=== PATIENT | female | born 1985 | race Caucasian/White ===

== ENCOUNTER 2016-10-29 10:27 | Emergency (ER) | payer MEDICAID ==
[~2016-10-29] VITALS: Ht 152.4 cm; Wt 42.7 kg
[~2016-10-29 10:27] MED LIST: 00186-0372-20 IH; ABILIFY5 MG PO; AMBIEN 10MG10 MG PO; BACTROBAN 22GM22 GM; CYMBALTA 20MG20 MG PO; DESYREL 50MG50 MG PO; FOLIC ACID 11 MG/TA1 PO; KLONOPIN 1MG1 MG PO; LAMICTAL 100MG100 MG PO; LEVAQUIN 5500 MG/TA1 PO; MACROBID 1100 MG/CAP PO; MORPHINE 1515 MG/TAB PO; MOTRIN 800800 MG/TAB PO; MS CONTIN 115 MG/TAB PO; NAPROSYN 2250 MG/TAB PO; NEURONTIN100 MG/CAP; NEURONTIN100 MG/CAP PO; NORCO 325 MG-101 TAB PO; NORCO 325 MG-51 TAB PO; OXY IR5 MG PO; OXYCONTIN 10MG10 MG PO; PROAIR HFA0.09 MG/AC IH; PROVIGIL 100MG100 MG PO; PROVIGIL200 MG PO; RECLIPSEN 0.151 TAB PO; REMERON 15M15 MG/TA1 PO; REQUIP 1MG T1 MG/TAB PO; RESTORIL30 MG PO; ROBAXIN 50500 MG/TAB PO; RT ADVAIR 528 DISKUS IH; SEROQUEL 2525 MG/TAB PO; SEROQUEL50 MG PO; SOMA 350MG350 MG/TAB PO; SONATA5 MG PO; STRATTERA80 MG PO; TOPROL XL 25MG25 MG PO; ULTRAM 50MG TAB50 MG PO; VENTOLIN0.09 MG IH; XANAX 0.5MG0.5 MG PO; ZOFRAN 4MG T4 MG/TAB PO; ZOFRAN8 MG PO
[2016-10-29 10:30] VITALS: TEMP 98.6
[2016-10-29 11:32] LABS: BASO # 0.1 (0.0-0.2); BASO % 0.4 % (0.0-2.0); EOS # 0.2 (0.0-0.7); EOS % 1.3 % (0-4.0); GRAN # 10.2 (1.4-6.5); GRAN % 78.9 % (42.2-75.2); HEMATOCRIT 37.6 % (37.0-47.0); HEMOGLOBIN 13.1 g/dl (12.5-16.0); LYMPH # 1.8 (1.2-3.4); LYMPH % 13.7 % (20.0-51.0); MEAN CELL VOLUME 87 fl (80.0-100.0); MEAN CORPUSCULAR HEMOGLOBIN 30 pg (27.0-31.0); MEAN CORPUSCULAR HGB CONC 35 g/dl (33.0-37.0); MEAN PLATELET VOLUME 9.6 fl (7.4-10.4); MONO # 0.7 (0.1-0.6); MONO % 5.3 % (1.7-9.3); PLATELET COUNT 251 K/mm3 (130-400); RED BLOOD COUNT 4.32 M/mm3 (4.10-5.30); REDCELL DISTRIBUTION WIDTH-CV 12.6 % (11.5-14.5); WHITE BLOOD COUNT 12.9 K/mm3 (4.8-10.8)
[2016-10-29] MEDS ORDERED: REQUIP 0.5MG0.5 MG PO (11:33)
[2016-10-29 11:38] LABS: PH 5 (5-8); URINE APPEARANCE Hazy; URINE BACTERIA None Seen /hpf; URINE BILIRUBIN Negative (NEGATIVE); URINE BLOOD 3+ (NEGATIVE); URINE COLOR Amber; URINE GLUCOSE Negative (NEGATIVE); URINE KETONE Negative (NEGATIVE); URINE RBC >50 /hpf; URINE UROBILINOGEN >=4.0 mg/dL (NEGATIVE); URINE WBC >50 /hpf
[2016-10-29 11:51] LABS: ADJUSTED CALCIUM 9.4 mg/dL (8.4-10.2); ALANINE AMINOTRANSFERASE 22 U/L (9-52); ALBUMIN 4.7 gm/dL (3.5-5.0); ALKALINE PHOSPHATASE 67 U/L (50-136); ANION GAP 11 mmol/L (7-16); BILIRUBIN,TOTAL 0.6 mg/dL (0.0-1.0); BLOOD UREA NITROGEN 7 mg/dL (7-17); CARBON DIOXIDE 24 mmol/L (22-30); CHLORIDE 103 mmol/L (98-107); CREATININE, serum 0.87 mg/dL (0.52-1.25); GLUCOSE 89 mg/dL (74-106); SODIUM 138 mmol/L (137-145); TOTAL PROTEIN 7.9 gm/dL (6.4-8.2)
[2016-10-29 11:52] LABS: C-REACTIVE PROTEIN < 0.5 mg/dL (0.0-0.9)
[2016-10-29] MEDS ORDERED: ZOFRAN 4MG T4 MG/TAB PO (12:53)
[2016-10-29] MEDS ORDERED: NORCO 325 MG-51 TAB PO (12:53)
[2016-10-29] MEDS ORDERED: OMNICEF 300MG300 MG PO (12:53)
[2016-10-29 14:05] VITALS: BP 91/70; PULSE 58
== END 2016-10-29 14:08 | disposition home or self-care (01) ==
LOC: COL.ER 10:27
PROVIDERS: Emergency Medicine
DX: N12 Tubulo-interstitial nephritis, not specified as acute or chronic (principal); F90.9 Attention-deficit hyperactivity disorder, unspecified type; F41.9 Anxiety disorder, unspecified; J45.909 Unspecified asthma, uncomplicated; Z87.442 Personal history of urinary calculi; Z98.51 Tubal ligation status
CPT/HCPCS: J0696; J1170; J2550; J7030

== ENCOUNTER 2016-11-16 21:48 | Emergency (ER) | payer MEDICAID ==
[~2016-11-16] VITALS: Ht 152.4 cm; Wt 43.6 kg
[~2016-11-16 21:48] MED LIST changes: +OMNICEF 300MG300 MG PO; +REQUIP 0.5MG0.5 MG PO
[2016-11-16 21:52] VITALS: BP 107/58; TEMP 98.1
[2016-11-17] MEDS ORDERED: BACTRIM DS 8001 TAB PO (00:32)
[2016-11-17] MEDS ORDERED: NORCO 325 MG-51 TAB PO (00:32)
[2016-11-17 00:46] VITALS: PULSE 92
== END 2016-11-17 00:47 | disposition home or self-care (01) ==
LOC: COL.ER 21:48
DX: N61.1 Abscess of the breast and nipple (principal); J45.909 Unspecified asthma, uncomplicated; F17.210 Nicotine dependence, cigarettes, uncomplicated
CPT/HCPCS: J2270

== ENCOUNTER 2016-12-26 19:11 | Emergency (ER) | payer MEDICAID ==
[~2016-12-26] VITALS: Ht 152.4 cm; Wt 48.2 kg
[~2016-12-26 19:11] MED LIST changes: +BACTRIM DS 8001 TAB PO
[2016-12-26 19:31] VITALS: BP 122/80; TEMP 99.5
[2016-12-26] MEDS ORDERED: SOMA 350MG350 MG/TAB PO (21:27)
[2016-12-26] MEDS ORDERED: NORCO 325 MG-51 TAB PO (21:27)
[2016-12-26 21:41] VITALS: PULSE 74
== END 2016-12-26 21:46 | disposition home or self-care (01) ==
LOC: COL.ER 19:11
DX: G89.29 Other chronic pain (principal); M54.9 Dorsalgia, unspecified

== ENCOUNTER 2017-03-01 17:12 | Emergency (ER) | payer MEDICAID ==
[~2017-03-01] VITALS: Ht 152.4 cm; Wt 47.3 kg
[2017-03-01 17:13] VITALS: BP 132/67; TEMP 98.1
[2017-03-01] MEDS ORDERED: XANAX 0.5MG0.5 MG PO (17:59)
[2017-03-01] MEDS ORDERED: LEXAPRO 10MG10 MG PO (17:59)
[2017-03-01] MEDS ORDERED: PROMETHAZINE12.5 M5 PO (18:55)
[2017-03-01 19:01] VITALS: PULSE 66
== END 2017-03-01 19:02 | disposition home or self-care (01) ==
LOC: COL.ER 17:12
DX: G43.909 Migraine, unspecified, not intractable, without status migrainosus (principal); F41.9 Anxiety disorder, unspecified; F32.9 Major depressive disorder, single episode, unspecified; F17.210 Nicotine dependence, cigarettes, uncomplicated
CPT/HCPCS: J2550

== ENCOUNTER 2017-03-17 19:50 | Emergency (ER) | payer MEDICAID ==
[~2017-03-17] VITALS: Ht 152.4 cm; Wt 44.3 kg
[~2017-03-17 19:50] MED LIST changes: +LAMICTAL 25MG T25 MG PO; +LEXAPRO 10MG10 MG PO; +PROMETHAZINE12.5 M5 PO
[2017-03-17 19:52] VITALS: TEMP 98.8
[2017-03-17 20:30] LABS: COLLECTION METHOD CLEAN CATCH
[2017-03-17 20:34] LABS: PH 7 (5-8); SQUAMOUS EPITHELIAL 0-2 /hpf; URINE APPEARANCE Clear; URINE BACTERIA Rare /hpf; URINE BILIRUBIN Negative (NEGATIVE); URINE BLOOD 2+ (NEGATIVE); URINE COLOR Straw; URINE GLUCOSE Negative (NEGATIVE); URINE KETONE Negative (NEGATIVE); URINE LEUKOCYTE ESTERASE Negative (NEGATIVE); URINE PROTEIN(semi-quant) Negative (NEGATIVE); URINE RBC 0-2 /hpf; URINE UROBILINOGEN Negative (NEGATIVE); URINE WBC 0-2 /hpf
[2017-03-17 20:53] LABS: BASO # 0.1 (0.0-0.2); BASO % 0.8 % (0.0-2.0); EOS # 0.2 (0.0-0.7); EOS % 1.8 % (0-4.0); GRAN # 6.5 (1.4-6.5); GRAN % 71.3 % (42.2-75.2); HEMATOCRIT 42.6 % (37.0-47.0); HEMOGLOBIN 14.5 g/dl (12.5-16.0); LYMPH # 1.9 (1.2-3.4); LYMPH % 21.3 % (20.0-51.0); MEAN CELL VOLUME 89 fl (80.0-100.0); MEAN CORPUSCULAR HEMOGLOBIN 30 pg (27.0-31.0); MEAN CORPUSCULAR HGB CONC 34 g/dl (33.0-37.0); MEAN PLATELET VOLUME 9.3 fl (7.4-10.4); MONO # 0.4 (0.1-0.6); MONO % 4.7 % (1.7-9.3); PLATELET COUNT 300 K/mm3 (130-400); WHITE BLOOD COUNT 9.1 K/mm3 (4.8-10.8)
[2017-03-17 21:04] LABS: ADJUSTED CALCIUM 9.3 mg/dL (8.4-10.2); ALANINE AMINOTRANSFERASE 24 U/L (9-52); ALBUMIN 5.1 gm/dL (3.5-5.0); ALKALINE PHOSPHATASE 83 U/L (50-136); ANION GAP 11 mmol/L (7-16); BILIRUBIN,TOTAL 0.4 mg/dL (0.0-1.0); BLOOD UREA NITROGEN 4 mg/dL (7-17); CALCIUM 10.2 mg/dL (8.4-10.2); CARBON DIOXIDE 27 mmol/L (22-30); CHLORIDE 102 mmol/L (98-107); CREATININE, serum 0.89 mg/dL (0.52-1.25); GLUCOSE 94 mg/dL (74-106); POTASSIUM 3.2 mmol/L (3.4-5.0); SODIUM 139 mmol/L (137-145); TOTAL PROTEIN 8.2 gm/dL (6.4-8.2)
[2017-03-17 21:05] LABS: C-REACTIVE PROTEIN < 0.5 mg/dL (0.0-0.9)
[2017-03-17 21:14] LABS: TROPONIN-I < 0.012 ng/mL (0.000-0.034)
[2017-03-17] MEDS ORDERED: KEPPRA 500MG500 MG PO (21:19)
[2017-03-17] MEDS ORDERED: TOPAMAX 25MG25 M1 PO (21:20)
[2017-03-17] MEDS ORDERED: SINGULAIR 110 MG/TAB PO (21:20)
[2017-03-17] MEDS ORDERED: CLARITIN 1010 MG/TAB PO (21:21)
[2017-03-17 22:10] VITALS: BP 106/66; PULSE 56
== END 2017-03-17 22:10 | disposition home or self-care (01) ==
LOC: COL.ER 19:50
PROVIDERS: Family Medicine
DX: R69 Illness, unspecified (principal); G40.909 Epilepsy, unspecified, not intractable, without status epilepticus; T42.6X5A Adverse effect of other antiepileptic and sedative-hypnotic drugs, initial encounter
CPT/HCPCS: J7030

== ENCOUNTER 2017-04-02 19:53 | Emergency (ER) | payer MEDICAID ==
[~2017-04-02] VITALS: Ht 152 cm; Wt 44.7 kg
[~2017-04-02 19:53] MED LIST changes: +CLARITIN 1010 MG/TAB PO; +KEPPRA 500MG500 MG PO; +SINGULAIR 110 MG/TAB PO; +TOPAMAX 25MG25 M1 PO
[2017-04-02 19:58] VITALS: BP 134/82; TEMP 99.1
[2017-04-02 21:06] VITALS: PULSE 92
== END 2017-04-02 21:06 | disposition home or self-care (01) ==
LOC: COL.ER 19:53
DX: H92.03 Otalgia, bilateral (principal); F17.210 Nicotine dependence, cigarettes, uncomplicated; Z86.19 Personal history of other infectious and parasitic diseases

== ENCOUNTER 2017-05-17 09:39 | Emergency (ER) | payer MEDICAID ==
[~2017-05-17] VITALS: Ht 152.4 cm; Wt 46.8 kg
[2017-05-17 09:40] VITALS: TEMP 98.9
[2017-05-17 10:26] LABS: COLLECTION METHOD CLEAN CATCH
[2017-05-17 10:37] LABS: PH 7 (5-8); SQUAMOUS EPITHELIAL 0-2 /hpf; URINE APPEARANCE Hazy; URINE BACTERIA Rare /hpf; URINE BILIRUBIN Negative (NEGATIVE); URINE BLOOD 3+ (NEGATIVE); URINE COLOR Amber; URINE GLUCOSE Negative (NEGATIVE); URINE KETONE Negative (NEGATIVE); URINE LEUKOCYTE ESTERASE 2+ (NEGATIVE); URINE NITRATE Positive (NEGATIVE); URINE PROTEIN(semi-quant) 2+ (NEGATIVE); URINE RBC 20-50 /hpf; URINE UROBILINOGEN >=4.0 mg/dL (NEGATIVE)
[2017-05-17] MEDS ORDERED: OMNICEF 300MG300 MG PO (11:23)
[2017-05-17] MEDS ORDERED: PYRIDIUM200 M1 PO (11:23)
[2017-05-17 12:21] VITALS: BP 101/58; PULSE 71
== END 2017-05-17 12:12 | disposition home or self-care (01) ==
LOC: COL.ER 09:39
PROVIDERS: Emergency Medicine
DX: N39.0 Urinary tract infection, site not specified (principal)